=== PATIENT | female | born 1975 | race Caucasian/White ===

== ENCOUNTER → 2019-08-30 | Outpatient (CLI) | payer BC ==
--- NOTE | 2019-08-30 16:20 | RAD ---
EXAM: Thyroid sonogram. HISTORY: Thyromegaly. TECHNIQUE: Sonographic imaging of the thyroid was performed. COMPARISON: None. FINDINGS: The right there are lobe measures 4.7 x 1.5 x 1.3 cm. The left thyroid lobe measures 4.1 x 1.3 x 1.1 cm. The isthmus measures 3 mm. No solid or cystic thyroid lesion is seen. IMPRESSION: Unremarkable thyroid sonogram. Electronically signed by: Nerissa Cr MD (08/30/2019 4:17 PM) [place] [id number]
== END | disposition home or self-care (01) ==
LOC: US 12:56
PROVIDERS: ATTEND Physician Assistant Medical
DX: E01.0 Iodine-deficiency related diffuse (endemic) goiter (principal)
CPT/HCPCS: 76536